=== PATIENT | male | born 1955 | race Hispanic/Latino ===

== ENCOUNTER → 2023-09-03 | Outpatient (CLI) | payer OTHER | END | disposition home or self-care (01) | LOC: RAH 08:15 | PROVIDERS: ATTEND Internal Medicine | DX: Z13.6 Encounter for screening for cardiovascular disorders (principal) | CPT/HCPCS: 75571 ==

== ENCOUNTER 2024-10-13 05:56 | Day surgery (SDC) | payer OTHER ==
[2024-10-10 12:19] LABS: BASOPHILS # (AUTO) 0.05 K/uL (0.00-0.20); BASOPHILS % (AUTO) 0.8 % (0.0-5.0); EOSINOPHILS # (AUTO) 0.17 K/uL (0.00-0.70); EOSINOPHILS % (AUTO) 2.7 % (0.0-8.0); HEMATOCRIT 49.4 % (42-54); IMMATURE GRANULOCYTE ABSOLUTE 0.01 K/uL (0-1); LYMPHOCYTES # (AUTO) 2.4 K/uL (1.0-4.8); LYMPHOCYTES % (AUTO) 39.1 % (21.0-51.0); MEAN CORPUSCULAR HEMOGLOBIN 28.8 pg (27.0-33.0); MEAN CORPUSCULAR HGB CONC 33.2 g/dL (32.0-36.0); MEAN CORPUSCULAR VOLUME 86.7 fL (79-99); MONOCYTES # (AUTO) 0.5 K/uL (0.1-1.0); MONOCYTES % (AUTO) 7.9 % (3.0-13.0); NEUTROPHILS # (AUTO) 3.1 K/uL (1.8-7.7); NEUTROPHILS % (AUTO) 49.3 % (40.0-77.0); PLATELET COUNT (AUTO) 139 K/uL (130-400); RED CELL DISTRIBUTION WIDTH 12.8 % (11.0-15.5); WHITE BLOOD COUNT (AUTO) 6.2 K/uL (4.8-10.8)
[2024-10-10 12:25] LABS: CREATININE 0.9 mg/dL (0.5-1.3); POTASSIUM 4.2 mmol/L (3.5-5.1)
[2024-10-10 12:28] LABS: INR 1.09 (0.85-1.15); PROTHROMBIN TIME 11.5 SEC (9.6-11.6)
[2024-10-10 12:29] LABS: PARTIAL THROMBOPLASTIN TIME 29.9 SEC (26.3-35.5)
[2024-10-10 12:40] LABS: B-TYPE NATRIURETIC PEPTIDE 48 pg/mL (0-100)
[2024-10-10 12:56] VITALS: BP 114/69; PULSE 56; RESP 18; TEMP 97.9
--- NOTE | 2024-10-10 13:14 | EKG ---
[facility] Test Date: 2024-10-10 Test Time: 12:04:33 Pat Name: DEDRA SEGOVIA Department: [facility] Room: Gender: Predatory Animal Hunter: [id number] : 1955 Requested By: LEWIS HAMMER Order Number: [id number] Reading MD: Lukasz Chao Measurements Intervals [place] Rate: 63 P: 57 CA: 192 QRS: 61 QRSD: 84 T: 51 QT: 419 QTc: 412 Interpretive Statements Sinus rhythm Atrial premature complex Probable left atrial enlargement No previous ECG available for comparison Electronically Signed On 10-10-2024 15:52:51 CDT by Lukasz Chao Please click the below link to view image of tracing.
[2024-10-13] VITALS (21 sets, daily range): BP systolic 96–137; BP diastolic 42–88; PULSE 52–72; RESP 14–16; TEMP 97.3–98.2
[~2024-10-13] VITALS: Ht 175.3 cm; Wt 76.7 kg
[~2024-10-13 05:56] MED LIST: ASPI-1005 PO; METO-408 PO; ROSU10TA72 PO; TAMS-55 PO
[2024-10-13] MEDS: 0.9%NACL 1000ML 1,000 ML IV SCH (07:09)
[2024-10-13] MEDS: LIDOCAINE HCL 2% VISCOUS 15 ML UDCUP PO ONE (07:09)
--- NOTE | 2024-10-13 08:12 | NUR ---
CARLOZ STARTED AT THIS TIME BY DR. HAMMER PT TOLERATING WELL NAD VSS
--- NOTE | 2024-10-13 08:26 | NUR ---
CARLOZ DONE AT THIS TIME VSS NAD. WILL MONITOR PT, PENDING PT TO GO TO [facility]ET[facility]IST[facility] FOR [facility] AT THIS TIME.
[2024-10-13] MEDS: MIDAZOLAM HCL 1 MG/ML 2ML VIAL IVP ONE (09:08)
[2024-10-13] MEDS: FENTanyl CITRate PF 50 MCG/1 ML 2ML VIAL IVP ONE (09:09)
[2024-10-13] MEDS ORDERED: VERAPAMIL HCL 2.5 MG/ML VIAL ONE (10:36)
[2024-10-13] MEDS ORDERED: LIDOCAINE HCL 400MG/20ML VIAL ONE (10:36)
[2024-10-13] MEDS ORDERED: IOHEXOL 350 MG/ML 100ML INFUS..BTL IV ONE (10:37)
[2024-10-13] MEDS ORDERED: HEParin 10,000 UNIT/10ML (1,000 UNIT/ML) VIAL ONE (10:37)
[2024-10-13] MEDS ORDERED: niCARDIpine 25MG INJ IV ONE (10:37)
[2024-10-13] MEDS ORDERED: HEParin-NS 1,000 UNIT/500 ML 1,000 ML IV ONE (10:37)
[2024-10-13] MEDS ORDERED: NITROGLYCERIN 50MG VIAL ONE (10:37)
--- NOTE | 2024-10-13 11:00 | NUR ---
PT LEFT TO RISK ENGINEER WITH RN
[2024-10-13] MEDS ORDERED: MIDAZOLAM HCL 1 MG/ML 2ML VIAL ONE (11:15)
[2024-10-13] MEDS ORDERED: FENTanyl CITRate PF 50 MCG/1 ML 2ML VIAL ONE (11:15)
[2024-10-13] MEDS ORDERED: 0.9%NACL 1000ML 1,000 ML IV SCH (12:30)
--- NOTE | 2024-10-13 12:37 | PRN ---
PROCEDURE NOTE Indications: -Bicuspid aortic valve with severe aortic stenosis (PV: 4.4 m/s, M mmHg) by echo done 08/13/2024 -Normal LV systolic function (LVEF: 55-60% by echo done 08/13/2024) -BROWN -HLP Procedures: Coronary angiogram Introduction: After informed written consent was obtained, the patient was brought to the Catheterization Lab in the usual fasting state. Following sterile prep and drape, a time out was performed, then moderate sedation was administered, 1mg of Versed and 50mcg of Fentanyl, then 1% Lidocaine was infiltrated into the right wrist. Using a Modified Seldinger technique, a 6Fr Sheath was inserted into the right radial artery. While under fluoroscopic guidance, diagnostic coronary catheters were advanced over a wire into the central circulation where they were aspirated, flushed and placed to pressure monitoring, once the wire was removed. Coronary Angio: The left and right coronary arteries were engaged with appropriate catheters and angiography was performed under continuous pressure monitoring. Cardiac Findings: Right dominant system LM: Large caliber vessel with mild luminal irregularities. The vessel bifurcates into the LAD and LCX. LAD: Medium caliber vessel with diffuse 20% stenosis in the mid LAD. The rest of the vessel has mild luminal irregularities. ALYSE 3 blood flow. DIAG1: Small caliber vessel with mild luminal irregularities. DIAG2: Small caliber vessel with 30% stenosis in the ostial DIAG2. LCx: Large caliber vessel with mild luminal irregularities. OM1: Small caliber vessel with mild luminal irregularities. OM2: Large caliber vessel with mild luminal irregularities. RCA: Large caliber vessel with 30% stenosis int he proximal RCA, 20% stenosis in the mid-distal RCA and 30% stenosis in the distal RCA. RPDA: Medium caliber vessel with mild luminal irregularities. RPLV: Medium caliber vessel with 20% stenosis in the proximal RPLV. Medications given: Versed 1mg, Fentanyl 50mcg Coronary Intervention: None Complications: None Conscious Sedation Monitoring: Under my direct order and supervision, medication for moderate conscious sedation was administered by the nursing staff and the patient�s level of consciousness and physiological status was monitored by an independent trained nurse. Closure of Access Site: After the case completed the sheath was pulled and a TR band was applied over the right radial artery without complication resulting in hemostasis. Conclusion: 1. Nonobstructive CAD 2. Bicuspid aortic valve with severe aortic stenosis (PV: 4.4 m/s, M mmHg) by echo done 08/13/2024 3. Normal LV systolic function (LVEF: 55-60% by echo done 08/13/2024) 4. BROWN 5. HLP Recommendation: 1. We will refer the patient for a TAVR vs minimally invasive SAVR as an outpatient 2. Continue goal directed medical therapy. 3. Wrist precautions 4. Please enact TR band removal protocol 5. Please start NS at 100 mL/hr x 3 hours 6. No driving x 48 hours 7. No strenuous activity or heavy lifting x 2 weeks 8. Okay to discharge home once bedrest is complete and the patient's radial access site is soft to palpation and free of significant bleeding, bruising, or hematoma formation. 9. Please have the patient follow up with Cardiology, Dr. Lewis Lynch, 1-2 weeks after discharge. LEWIS LYNCH MD October 13, 2024 12:37
[2024-10-13] MEDS: ondanSETRON 4MG INJ ONE (15:04)
[2024-10-13] MEDS: ondanSETRON 4MG INJ IVP ONE (15:05)
--- NOTE | 2024-10-16 11:22 | HMCSR ---
APPROVED REPORT EXAM: Transesophageal echocardiogram with color flow Doppler. INDICATION ICD: I35.0 Non-rheumatic aortic valve stenosis PROCEDURE After obtaining informed consent, patient underwent transesophageal echo in the Day Patient Room 16. 15 mL 2% Viscous Lidocaine was given as a topical anesthetic prior to the administration of the consc ious sedation. Type of Sedation: Conscious Sedation Sedation was administered by Eric Malone RN. Sedation was achieved with 1mg Versed and 50 mcg Fentanyl intravenously. Transesophageal probe was inserted and advanced into esophagus without difficulty by Dr. Lynch. CARLOZ was performed and images were obtained, probe was removed without complications. Throughout the procedure, the blood pressure, pulse oximetry, cardiac rhythm, and rate were monitored . The patient tolerated the procedure without adverse effects. Recovery from conscious sedation was une ventful and vital signs were stable. Left Ventricle The left ventricle is normal in size. Normal left ventricular systolic wall motion. Mild concentric l eft ventricular hypertrophy. Left ventricle systolic function is normal, estimated LVEF is > 55%. Ind eterminate diastolic function. Right Ventricle The right ventricle is normal size. The right ventricular systolic function is normal. Atria The left atrium is moderately dilated. Rouleaux formation seen in the left atrium. No thrombus seen i n the left atrium. The left atrial appendage is normal in size. No thrombus seen in the left atrial a ppendage. Interatrial septum is intact without evidence of PFO by color flow doppler. The right atriu m is moderately dilated. Aortic Valve Aortic valve is bicuspid. The leaflets are severely thickened and calcified with reduced excursion. T race aortic regurgitation. Severe aortic stenosis. Mitral Valve The leaflets are mildly thickened and calcified. Mild mitral regurgitation. No mitral stenosis. Tricuspid Valve Tricuspid valve is grossly normal in structure and function. Trace tricuspid regurgitation. Pulmonic Valve Pulmonic valve is not well visualized. Great Vessels The aortic root is normal in size. Pericardium No pericardial effusion. Conclusion The left atrium is moderately dilated. Rouleaux formation seen in the left atrium. No thrombus seen in the left atrium. The left atrial appendage is normal in size. No thrombus seen in the left atrial appendage. The right atrium is moderately dilated. Mild concentric left ventricular hypertrophy. Normal left ventricular systolic wall motion. Left ventricle systolic function is normal, estimated LVEF is > 55%. Indeterminate diastolic function. Aortic valve is bicuspid. The leaflets are severely thickened and calcified with reduced excursion. Severe aortic stenosis. Trace aortic regurgitation. Mild mitral regurgitation. Trace tricuspid regurgitation. No pericardial effusion.
== END 2024-10-13 18:30 | disposition home or self-care (01) ==
LOC: DAH 05:56 → EDSTATUS 11:00 → DAH 18:30
PROVIDERS: ATTEND Internal Medicine Cardiovascular Disease
DX: I08.3 Combined rheumatic disorders of mitral, aortic and tricuspid valves (principal); I25.10 Atherosclerotic heart disease of native coronary artery without angina pectoris; E78.5 Hyperlipidemia, unspecified; R06.09 Other forms of dyspnea; G47.33 Obstructive sleep apnea (adult) (pediatric); N40.0 Benign prostatic hyperplasia without lower urinary tract symptoms; Z98.890 Other specified postprocedural states; Z79.899 Other long term (current) drug therapy; Z79.01 Long term (current) use of anticoagulants
CPT/HCPCS: 36415; 80048; 83880; 85025; 85610; 85730; 93005; 93312; 93325; 93454; 96360; 96361; 99152; 99156; 99157; A4606; C1769; J1644; J2250; J2405; J3010; J3490; J7030; Q9967; A4215; A4216; A4221; A4222; A4223; A4615; A4657; A4663; C1894; G0500; Q9965

== ENCOUNTER 2024-10-17 11:42 | Emergency (ER) | payer OTHER ==
[~2024-10-17] VITALS: Ht 175.3 cm; Wt 76.2 kg
--- NOTE | 2024-10-17 11:51 | ERN ---
ED Note History of Present Illness Stated Complaint: DIZZY,NAUSEA,FAINTING Chief Complaint: Dizzy/Light Headed Time Seen by MD: 11:44 Dictation: PATIENT IS A 69-YEAR-OLD MALE STATES HE IS STATUS POST A T AND HEART CATHETERIZATION DONE YESTERDAY BY DR. HAMMER. HE STATES HE GAVE HIM A SEDATIVE PRIOR TO THE PROCEDURE AND HE FEELS LIKE SAID IT IT MAY BE AFFECTING HIM A SINCE HE DOES NOT DO WELL WITH THOSE KIND OF THINGS. HE IS NEUROLOGICALLY INTACT NIH IS 0 LEFT HORIZONTAL NYSTAGMUS NOTED ON EXAM STATES THE EXAM MADE HIM DIZZY. Allergies: Coded Allergies: No Known Drug Allergies (Unverified Allergy, Unknown, 10/10/24) Home Meds Reported Medications Aspirin (ASPIRIN 81MG CHEW TAB) 81 Mg Tab.chew, 81 MG PO DAILY, TAB.CHEW 10/10/24 Rosuvastatin Calcium (Rosuvastatin Calcium) 10 Mg Tablet, 10 MG PO HS, TAB 10/10/24 Metoprolol Succinate (Metoprolol Succinate) 25 Mg Tab.er.24h, 12.5 MG PO AM, TAB 10/10/24 Tamsulosin HCl (Flomax) 0.4 Mg Cap.er.24h, 0.4 MG PO HS, CAPSULE. 10/10/24 Past Medical History Past Medical History: CAD Surgical History: Other RN Note Reviewed/Agreed w/PFSH: Yes Review of System Dictation CONSTITUTIONAL: NEGATIVE EXCEPT FOR HPI GB W HEAD/FACE: NEGATIVE EXCEPT FOR HPI EENT: NEGATIVE EXCEPT FOR HPI RESPIRATORY: NEGATIVE EXCEPT FOR HPI GASTROINTESTINAL/ABDOMINAL: NEGATIVE EXCEPT FOR HPI GENITOURINARY: NEGATIVE EXCEPT FOR HPI MUSCULOSKELETAL: NEGATIVE EXCEPT FOR HPI INTEGUMENTARY: NEGATIVE EXCEPT FOR HPI NEUROLOGICAL/PSYCH: NEGATIVE EXCEPT FOR HPI DIZZINESS HEMATOLOGIC/LYMPHATIC: NEGATIVE EXCEPT FOR HPI ALL SYSTEMS NEGATIVE, EXCEPT NOTED ABOVE. 13 POINT REVIEW OF SYSTEMS ASSESSED AND ALL NEGATIVE EXCEPT FOR ABOVE. Initial Vital Sign VS Vital Signs Date Time Temp Pulse Resp B/P (MAP) Pulse Ox O2 Delivery O2 Flow Rate FiO2 10/17/24 11:47 97.5 67 14 138/77 99 Room Air 0 10/17/24 11:55 21 Physical Exam Dictation VITAL SIGNS REVIEWED GENERAL APPEARANCE: ALERT, ORIENTED X 3, NO ACUTE DISTRESS, WELL DEVELOPED, NOURISHED. 0/10 PAIN HEAD AND FACE: NON-TRAUMATIC. EYES: PERRL, PINK CONJUNCTIVAS, EYELID NO TRAUMA, ANTERIOR CHAMBER WITH ARCUS SENILIS. LEFT HORIZONTAL NYSTAGMUS/MILD EARS: PINNAS INTACT AND NO SIGNS OF TRAUMA OR ERYTHEMA EAR CANALS CLEAR AND NO DISCHARGE TM NO ERYTHEMA NOSE: NO DISCHARGE, NO BLEEDING. OROPHARYNX: MOUTH NORMAL, TONGUE PINK, PHARYNX CLEAR,NO ERYTHEMA, TONSILS NO EXUDATES, NO ABSCESSES NOTED, MUCOUS MEMBRANE MOIST NECK: SUPPLE, NON-TENDER, NO THYROMEGALY, NO MASSES, NO JVD, NO BRUITS BREAST:DEFERRED CHEST:NO TENDERNESS, NO CREPITUS, NO PARADOXICAL MOVEMENT, NO RETRACTIONS LUNGS:CLEAR, WELL-VENTILATED, SYMMETRIC, NO RALES, NO WHEEZING, NO RHONCHI, NO STRIDOR, GOOD BREATH SOUNDS BILATERALLY HEART: REGULAR RATE, REGULAR RHYTHM, NO MURMUR, NO GALLOPS VASCULAR: NO PERIPHERAL EDEMA, ABDOMEN: SOFT, POSITIVE BOWEL SOUNDS, NONDISTENDED, NO GUARDING, NONTENDER, NO REBOUND, NO MASSES NO HEPATOMEGALY, NO SPLENOMEGALY, NO SRINIVASAN'S SIGN, NO HERNIAS. RECTAL: DEFERRED GENITAL: DEFERRED NEUROLOGICAL: NORMAL SPEECH, MOTOR FUNCTION INTACT, SENSORY FUNCTION INTACT NIH IS 0 MUSCULOSKELETAL: NECK NONTENDER, FULL RANGE OF MOTION, BACK NONTENDER, FULL RANGE OF MOTION, EXTREMITIES: NONTENDER, FULL RANGE OF MOTION SKIN: COLOR PINK, DRY, NO TURGOR, NO RASH, NO LACERATIONS, NO ABRASIONS, NO CONTUSIONS. LYMPHATIC: DEFERRED Results (Laboratory/Radiology) Laboratory/Radiology Laboratory Tests Test 10/17/24 12:13 10/17/24 12:31 White Blood Count 5.7 K/uL (4.8-10.8) Red Blood Count 5.80 MIL/uL (4.50-6.20) Hemoglobin 16.9 g/dL (14.0-18.0) Hematocrit 50.8 % (42-54) Mean Corpuscular Volume 87.6 fL (79-99) Mean Corpuscular Hemoglobin 29.1 pg (27.0-33.0) Mean Corpuscular Hemoglobin Concent 33.3 g/dL (32.0-36.0) Red Cell Distribution Width 12.9 % (11.0-15.5) Platelet Count 126 K/uL (130-400) L Mean Platelet Volume 10.9 fL (7.5-10.5) H Immature Granulocyte % (Auto) 0.2 % (0-1) Neutrophils (%) (Auto) 45.0 % (40.0-77.0) Lymphocytes (%) (Auto) 42.8 % (21.0-51.0) Monocytes (%) (Auto) 8.2 % (3.0-13.0) Eosinophils (%) (Auto) 3.3 % (0.0-8.0) Basophils (%) (Auto) 0.5 % (0.0-5.0) Neutrophils # (Auto) 2.6 K/uL (1.8-7.7) Lymphocytes # (Auto) 2.5 K/uL (1.0-4.8) Monocytes # (Auto) 0.5 K/uL (0.1-1.0) Eosinophils # (Auto) 0.19 K/uL (0.00-0.70) Basophils # (Auto) 0.03 K/uL (0.00-0.20) Absolute Immature Granulocyte (auto 0.01 K/uL (0-1) Nucleated Red Blood Cells 0.0 % (0.0-0.19) Sodium Level 139 mmol/L (136-145) Potassium Level 4.0 mmol/L (3.5-5.1) Chloride Level 105 mmol/L (101-111) Carbon Dioxide Level 30 mmol/L (21-32) Blood Urea Nitrogen 24 mg/dL (7-18) H Creatinine 1.0 mg/dL (0.5-1.3) Glomerular Filtration Rate Calc 80 mL/min (>90) Random Glucose 146 mg/dL (70-105) H Total Calcium 9.1 mg/dL (8.5-10.1) Troponin I High Sensitivity 14 ng/L (4-75) Urine Color LIGHT-YELLOW (YELLOW) Urine Appearance CLEAR (CLEAR) Urine pH 7.0 (5.0-8.0) Urine Specific [place] 1.013 (1.001-1.031) Urine Protein NEGATIVE mg/dL (NEGATIVE) Urine Glucose (UA) NEGATIVE mg/dL (NEGATIVE) Urine Ketones NEGATIVE mg/dL (NEGATIVE) Urine Occult Blood NEGATIVE (NEGATIVE) Urine Nitrate NEGATIVE (NEGATIVE) Urine Bilirubin NEGATIVE mg/dL (NEGATIVE) Urine Urobilinogen 0.2 mg/dL (0.2-1.0) Urine Leukocyte Esterase NEGATIVE Humberto/uL xam Type: CT HEAD/BRAIN W/O CONTRAST Clinical Information: OF DIZZINESS AND VERTIGO YESTERDAY. FRONTAL HEADACHE Comparison: None CT Dose Index (CTDI): 57.33 mGy Dose Length Product (DLP): 956.79 total mGy-cm Findings: The examination is unremarkable. Hendrix-white matter junction is preserved. No intra or extra axial lesions or fluid collections are seen. Specifically, hendrix and white matter are normal in signal characteristics with normal caliber of ventricles and periventricular cisterns with no evidence of intra or or extra-axial hemorrhage, lacunar infarct, or major territorial infarct, mass, or other abnormality. There are no infarcts. There are no hemorrhages. Periventricular white matter locations are preserved. The orbital contents and structures of the posterior fossa are intact. Impression: Normal CT of the head. This study was performed using dose reduction techniques to include automated exposure control and/or adjustment of the mA and/or kV according to patient size. Labs Reviewed?: Yes EKG Comment: EKG SINUS RHYTHM/HEART RATE 65/OCCASIONAL PACS/LEFT ATRIAL ENLARGEMENT ED Course ED Course Orders Procedure Category Date Status Time Ct Head/Brain W/O CT 10/17/24 Resulted Contrast 11:48 Cbc With Differential LAB 10/17/24 Complete 11:48 Troponin I High LAB 10/17/24 Complete Sensitivity 11:48 Urinalysis Profile LAB 10/17/24 Complete 11:48 12 Lead Ekg Tracing- EKG 10/17/24 Logged Technical 11:48 0.9%Nacl 1000ml (Ns PHA 10/17/24 Complete 1000ml) 12:00 Basic Metabolic Panel LAB 10/17/24 Complete 11:48 Current Medications Medications (Trade) Dose Ordered Sig/Aiden Route PRN Reason Start Time Stop Time Status Last Admin Dose Admin Sodium Chloride 1,000 ml @ 0 mls/hr ONCE ONCE IV 10/17/24 12:00 10/17/24 12:17 DC 10/17/24 12:40 Vital Signs Date Time Temp Pulse Resp B/P (MAP) Pulse Ox O2 Delivery O2 Flow Rate FiO2 10/17/24 11:55 97.5 67 14 138/77 99 Room Air* 0 21 10/17/24 11:47 97.5 67 14 138/77 99 Room Air 0 1340/PATIENT STATES HE FEELS MARKEDLY IMPROVED AFTER FLUIDS. HE IS AWARE IT CAT SCAN CARDIAC WORKUP LABS ESSENTIALLY NEGATIVE HIM WE WILL FOLLOW UP WITH HIS DOCTOR NEXT WEEK. AT BEDSIDE AND ANSWERED ALL QUESTIONS AND NEUROLOGICALLY INTACT Medical Decision Making MDM MDM: DIFFERENTIAL DIAGNOSIS: CVA/ACS/AMI/ELECTROLYTE IMBALANCE/DEHYDRATION/LABYRINTHITIS/VERTIGO RATIONALE: TESTS CONSIDERED AND ORDERED SECONDARY TO SHARED DECISION MAKING INCLUDE: RADIOLOGY/LABS/EKG PREVIOUS OUTSIDE RECORDS REVIEWED: OLD ER VISITS. RISK OF COMPLICATION AND/OR MORBIDITY OR MORTALITY OF PATIENT MANAGEMENT: NONE MEDICATIONS-PER MEDICATION RECONCILIATION NEED FOR HOSPITALIZATION: PATIENT DOES NOT MEET CRITERIA FOR HOSPITALIZATION. NONE NEED FOR EMERGENCY MAJOR/MINOR SURGERY: NO THERE ARE NO SOCIAL CONCERNS WITH THIS PATIENT. PRESCRIPTION DRUG MANAGEMENT NONE PRESCRIPTIONS WILL INCLUDE SYMPTOMATIC CARE PATIENT'S PRIOR EXTERNAL MEDICAL RECORDS FROM OTHER ER VISITS WERE REVIEWED BY ME INDICATED. PRIOR TESTING AND RESULTS FROM PREVIOUS VISITS WERE REVIEWED. PRIOR TESTS WERE TAKEN INTO ACCOUNT WITH MEDICAL DECISION MAKING AND RESOURCE UTILIZATION, INDEPENDENT HISTORIAN/HISTORIANS WERE USED TO OBTAIN COMPLETE MEDICAL HISTORY. I INDEPENDENTLY INTERPRETED THE TEST THAT WERE PERFORMED, RESULTS WERE REVIEWED BY ME AND CONSIDERED FINDINGS ON RADIOLOGY IF ORDERED. MEDICAL MANAGEMENT AND EXAMINATION INTERPRETATION DISCUSSIONS WERE HAD BY ME WITH OTHER QUALIFIED HEALTHCARE PROFESSIONALS INDICATED FOR THE PATIENT'S CARE. DX & DISP Disposition: Discharge Departure Impression: Primary Impression: Medication side effects Additional Impressions: Mild dehydration, Hyperglycemia Condition: Stable Referrals: KATE ROBERTS MD (PCP) Time of Disposition: 13:40 I have reviewed the case, and I agree with, Diagnosis and Plan ANKUR WEATHERS NP October 17, 2024 11:51
[2024-10-17 12:29] LABS: BASOPHILS # (AUTO) 0.03 K/uL (0.00-0.20); BASOPHILS % (AUTO) 0.5 % (0.0-5.0); EOSINOPHILS # (AUTO) 0.19 K/uL (0.00-0.70); EOSINOPHILS % (AUTO) 3.3 % (0.0-8.0); HEMATOCRIT 50.8 % (42-54); IMMATURE GRANULOCYTE ABSOLUTE 0.01 K/uL (0-1); LYMPHOCYTES # (AUTO) 2.5 K/uL (1.0-4.8); LYMPHOCYTES % (AUTO) 42.8 % (21.0-51.0); MEAN CORPUSCULAR HEMOGLOBIN 29.1 pg (27.0-33.0); MEAN CORPUSCULAR HGB CONC 33.3 g/dL (32.0-36.0); MEAN CORPUSCULAR VOLUME 87.6 fL (79-99); MONOCYTES # (AUTO) 0.5 K/uL (0.1-1.0); MONOCYTES % (AUTO) 8.2 % (3.0-13.0); NEUTROPHILS # (AUTO) 2.6 K/uL (1.8-7.7); PLATELET COUNT (AUTO) 126 K/uL (130-400); RED CELL DISTRIBUTION WIDTH 12.9 % (11.0-15.5); WHITE BLOOD COUNT (AUTO) 5.7 K/uL (4.8-10.8)
[2024-10-17 12:40] LABS: APPEARANCE,URINE CLEAR (CLEAR); BILIRUBIN,URINE NEGATIVE (NEGATIVE); COLOR,URINE LIGHT-YELLOW (YELLOW); GLUCOSE, URINE (UA) NEGATIVE (NEGATIVE); KETONES,URINE NEGATIVE (NEGATIVE); LEUKOCYTE ESTERASE ,URINE NEGATIVE Leu/uL (NEGATIVE); NITRATE,URINE NEGATIVE (NEGATIVE); OCCULT BLOOD,URINE NEGATIVE (NEGATIVE); PROTEIN,URINE NEGATIVE (NEGATIVE); UROBILINOGEN,URINE 0.2 mg/dL (0.2-1.0)
[2024-10-17] MEDS: 0.9%NACL 1000ML 1,000 ML IV ONE (12:40)
[2024-10-17 12:41] LABS: ADD UA MICROSCOPIC NO
--- NOTE | 2024-10-17 13:10 | HMCIMG ---
Exam Type: CT HEAD/BRAIN W/O CONTRAST Clinical Information: OF DIZZINESS AND VERTIGO YESTERDAY. FRONTAL HEADACHE Comparison: None CT Dose Index (CTDI): 57.33 mGy Dose Length Product (DLP): 956.79 total mGy-cm Findings: The examination is unremarkable. Hendrix-white matter junction is preserved. No intra or extra axial lesions or fluid collections are seen. Specifically, hendrix and white matter are normal in signal characteristics with normal caliber of ventricles and periventricular cisterns with no evidence of intra or or extra-axial hemorrhage, lacunar infarct, or major territorial infarct, mass, or other abnormality. There are no infarcts. There are no hemorrhages. Periventricular white matter locations are preserved. The orbital contents and structures of the posterior fossa are intact. Impression: Normal CT of the head. This study was performed using dose reduction techniques to include automated exposure control and/or adjustment of the mA and/or kV according to patient size.
[2024-10-17 14:26] VITALS: BP 124/74; PULSE 62; RESP 14; TEMP 97.5; O2SAT 99
--- NOTE | 2024-10-17 15:12 | EKG ---
[facility] Test Date: 2024-10-17 Test Time: 11:50:19 Pat Name: DEDRA SEGOVIA Department: [facility] Room: Gender: M Attendance Officer: [id number] : 1955 Requested By: ANKUR WEATHERS Order Number: [id number] Reading MD: Hussein Argueta Measurements Intervals [place] Rate: 65 P: 41 NC: 184 QRS: 68 QRSD: 84 T: 37 QT: 398 QTc: 413 Interpretive Statements Sinus rhythm Atrial premature complex Probable left atrial enlargement Compared to ECG 10/10/2024 12:04:33 No significant changes Electronically Signed On 10-19-2024 13:06:34 CDT by Hussein Argueta Please click the below link to view image of tracing.
== END 2024-10-17 14:28 | disposition home or self-care (01) ==
LOC: EDH 11:42
DX: E86.0 Dehydration (principal); R73.9 Hyperglycemia, unspecified; I25.10 Atherosclerotic heart disease of native coronary artery without angina pectoris; Z79.82 Long term (current) use of aspirin
CPT/HCPCS: 99284; 70450; 84484; 80048; 85025; 81003; 36415; 93005; J7030